=== PATIENT | female | born 1990 | race Caucasian/White ===

== ENCOUNTER 2016-10-07 04:41 | Inpatient (IN) | payer BC, OTHER, MEDICAID ==
[2016-10-07] MEDS ORDERED: LIDOCAINE HCL 50 ML VIAL PERI PRN (05:40)
[2016-10-07] MEDS ORDERED: RINGERS SOLUTION,LACTATED 1,000 ML IV ONE (05:40)
[2016-10-07] MEDS ORDERED: OXYTOCIN/DEXTROSE 5%-WATER 30 UNITS/500 ML BAG IV ONE ×2 (05:40→12:33)
[2016-10-07] MEDS ORDERED: ONDANSETRON HCL/PF 2 MG/ML VIAL IV PRN (06:18)
[2016-10-07] MEDS ORDERED: BUPIVACAINE HCL/0.9 % NACL/PF 250 ML EP PRN (06:18)
[2016-10-07] MEDS ORDERED: NALOXONE HCL 1 MG/1 ML SYRG IV PRN (06:18)
[2016-10-07] MEDS ORDERED: fentaNYL CITRATE/PF 50 MCG/ML AMPUL IT SCH (06:30)
[2016-10-07] MEDS: DEXTROSE 5%-LACTATED RINGERS 1,000 ML IV PRN ×2 (06:45→10:52)
--- NOTE | 2016-10-07 06:53 | OR ---
Anesthesia Procedure Note - Anesthesia Procedure Note Narrative: Vital Signs - Last Taken Temp 36.4 C L 02/03/14 18:31 Pulse Resp BP 110/76 02/03/14 18:31 Pulse Ox 10/07/16 06:52 ANESTHESIA PROCEDURE NOTE Date of Procedure: 10/07/2016 Time of procedure: 02 28. Performed by: Андрей Limon CRNA Surface Room Shop Optician: None. Preprocedure diagnosis: Active labor. Post procedure diagnosis: Same. Procedure: Insertion of labor epidural. Indications: The patient is a 26 -year-old prima para female in active labor requesting labor epidural for pain management. Findings: See below. Details of the procedure: The patient was placed in a sitting position. Back was prepped with DuraPrep. Patient was then draped in a sterile fashion. Lidocaine 1% was infiltrated to the skin and subcutaneous tissues at the level of the L3 4 interspace. The epidural space was identified using a 18-gauge Tuohy needle with upxm-cu-xibeocncqa technique. 20 mcg fentanyl was given intrathecally using a 27 ga. spinal needle. Epidural catheter was inserted without difficulty. Negative test dose was elicited using 5 mL of 1.5% preservative-free lidocaine plus epinephrine 1 200,000. The epidural catheter was then taped and secured in place. EBL: Minimal. Fluids: N/A. Specimen: N/A. Post procedure condition: The patient tolerated the procedure well. No complications were noted. Thank you for this consultation. Campbell CRNA
[2016-10-07 07:14] LABS: Urine Bilirubin Negative (NEGATIVE); Urine Blood 250 /ul (NEGATIVE); Urine Ketone Negative (NEGATIVE); Urine Nitrite Negative (NEGATIVE); Urine Protein 15 mg/dL (NEGATIVE); Urine Specific Gravity 1.015 SP.GR. (1.005-1.010); Urine Urobilinogen Normal (NORMAL)
[2016-10-07 07:25] LABS: Urine Appearance Cloudy; Urine Bacteria 2+; Urine Color Yellow
--- NOTE | 2016-10-07 07:29 | PN ---
Progess Note - Interim Narrative: 10/07/16 07:27 Patient comfortable with epidural Vital signs stable. FHT: 130 baseline, reassuring Contractions q 2-3 min Cervix: 7-8/90/-2 Impression: Intrauterine at 40 1/7 weeks in labor with spontaneous rupture of membranes at 0410 this a.m.-clear Plan: Anticipate normal spontaneous vaginal delivery in the next 2-3 hours
--- NOTE | 2016-10-07 08:40 | PN ---
Progess Note - Interim Narrative: 10/07/16 08:39 Patient comfortable with epidural Vital signs stable. FHT:150 baseline, reassuring Contractions q 2-3 min Cervix: Rim/0, Impression: Intrauterine at 40 1/7 weeks in labor Plan: Labor down
[2016-10-07] MEDS ORDERED: oxyCODONE HCL/ACETAMINOPHEN 1 TAB TABLET PO PRN (12:33)
[2016-10-07] MEDS ORDERED: BENZOCAINE/MENTHOL 81 SPRAY CAN TP PRN (12:33)
[2016-10-07] MEDS ORDERED: SENNOSIDES 8.6 MG TABLET PO PRN (12:33)
[2016-10-07] MEDS ORDERED: BISACODYL 10 MG SUPP.RECT RC PRN (12:33)
[2016-10-07] MEDS ORDERED: HYDROCORTISONE 30 APPL TUBE TP PRN (12:33)
[2016-10-07] MEDS ORDERED: GLYCERIN/WITCH HAZEL LEAF 40 APPL BOX TP PRN (12:33)
--- NOTE | 2016-10-07 12:41 | OR ---
Operative Report - Dictated Report Narrative: Indication: Maternal exhaustion Pre Procedure Patient was counseled to the risk, benefits, and alternatives to operative vaginal delivery. All questions were answered. Patient consented to proceed with operative vaginal delivery. heart rate interpretation: Reassuring, EFW 3700 g, station +3, Position of head AZUL, Anesthesia: epidural Cervix was completely dilated and effaced, maternal- size appropriate for application, bladder was emptied, flexion point identified, cup choice appropriate for application site, maternal tissue excluded from vacuum cup Procedure Total application time of the Kiwi Pro with Palm Pump was 3 minutes (only 1 minute with suction applied), maximum vacuum achieved was 500 mm Hg, number of pulls 1, number of involuntary releases 0, vacuum reduced between contractions, advancement in station with each pull, degree of rotation 0-45 Post Procedure Viable female born at 1205 on 10/07/2016 in AZUL position with Apgars 8 and 9, weighing 3793 g. Cord gases not collected, Placenta spontaneously delivered, EBL 100 mL, Nuchal cord x 1, foot cord 1, terminal meconium, small scalp caput, no shoulder dystocia. Cord clamping delayed 1 minute. History for MU Definition: * The number of deliveries resulting in a live the patient experienced prior to current hospitalization * The previous delivery of live twins or any live multiple gestation is considered one live event. *If primagravida or nulliparous is documented select zero for the number of previous live births. Live Events: 0
[2016-10-07] MEDS: DOCUSATE SODIUM 100 MG CAPSULE PO SCH ×2 (13:34→22:31)
[2016-10-07] MEDS: IBUPROFEN 800 MG TABLET PO PRN ×2 (14:52→22:31)
[2016-10-07] MEDS: oxyCODONE HCL/ACETAMINOPHEN 1 TAB TABLET PO PRN ×2 (14:52→22:31)
[2016-10-08] MEDS: IBUPROFEN 800 MG TABLET PO PRN ×3 (06:32→21:36)
[2016-10-08] MEDS: DOCUSATE SODIUM 100 MG CAPSULE PO SCH ×2 (09:05→21:36)
[2016-10-08] MEDS: PRENATAL VIT#96/FERROUS FUM/FA 1 TAB TABLET PO SCH (09:05)
[2016-10-08] MEDS: FERROUS SULFATE 325 MG TABLET PO SCH (09:05)
[2016-10-08] MEDS: oxyCODONE HCL/ACETAMINOPHEN 1 TAB TABLET PO PRN ×2 (10:32→21:35)
--- NOTE | 2016-10-08 15:20 | PN ---
Subjective - Date and Time Seen Date: 10/08/16 Time: 15:19 Objective - Vitals Vitals: Last Vital Signs Temp 36.7 C 10/08/16 12:40 Pulse 95 10/08/16 12:40 Resp 17 10/08/16 12:40 BP 135/68 10/08/16 12:40 Pulse Ox 96 10/08/16 12:40 Patient denies complaints. Lochia wnl Abdomen - soft, nontender Uterus - firm, at umbilicus - 1 No calf tenderness Impression: day #1 - s/p vacuum-assisted vaginal delivery. Plan: Continue routine care
[2016-10-09] MEDS: IBUPROFEN 800 MG TABLET PO PRN ×2 (06:36→13:42)
[2016-10-09] MEDS: DOCUSATE SODIUM 100 MG CAPSULE PO SCH (08:36)
[2016-10-09] MEDS: FERROUS SULFATE 325 MG TABLET PO SCH (08:36)
[2016-10-09 08:57] VITALS: BP 127/86
[2016-10-09] MEDS: PRENATAL VIT#96/FERROUS FUM/FA 1 TAB TABLET PO SCH (13:42)
--- NOTE | 2016-10-09 16:31 | PN ---
Subjective - Date and Time Seen Date: 10/09/16 Time: 16:31 Objective - Vitals Vitals: Last Vital Signs Temp 36.9 C 10/09/16 08:30 Pulse 92 10/09/16 08:30 Resp 20 10/09/16 08:30 BP 127/86 10/09/16 08:30 Pulse Ox 99 10/09/16 08:30 Patient denies complaints. States feeding well Lochia wnl Abdomen - soft, nontender Uterus - firm, at umbilicus - 2 No calf tenderness Impression: day #2 - s/p spontaneous vaginal delivery. Plan: Routine discharge instructions. Will with Dr. Morrow in 4 weeks.
== END 2016-10-09 15:40 | disposition home or self-care (01) | DRG 775 ==
LOC: OBCLINIC 04:41 → OB 05:28
PROVIDERS: ADMIT Obstetrics & Gynecology; ATTEND Obstetrics & Gynecology
PROC: 10D07Z6 Extraction of Products of Conception, Vacuum, Via Natural or Artificial Opening (ICD-10-PCS; principal; 2016-10-07)
PROC: 4A1HXCZ Monitoring of Products of Conception, Cardiac Rate, External Approach (ICD-10-PCS; 2016-10-07)
PROC: 3E0S3CZ (ICD-10-PCS; 2016-10-07)
DX: O75.81 Maternal exhaustion complicating labor and delivery (principal); O69.81X0 Labor and delivery complicated by cord around neck, without compression, not applicable or unspecified; O99.02 Anemia complicating childbirth; D64.9 Anemia, unspecified; O77.0 Labor and delivery complicated by meconium in amniotic fluid; Z3A.40 40 weeks gestation of pregnancy; Z37.0 Single live birth

== ENCOUNTER 2021-01-11 05:56 | Inpatient (IN) ==
[2021-01-11] MEDS ORDERED: DEXTROSE 5%-LACTATED RINGERS 1,000 ML IV PRN (06:06)
[2021-01-11] MEDS ORDERED: RINGER'S SOLUTION,LACTATED 1,000 ML IV ONE (06:06)
[2021-01-11] MEDS ORDERED: OXYTOCIN/0.9 % SODIUM CHLORIDE 30 UNITS/500 ML BAG IV ONE ×2 (06:06→17:13)
[2021-01-11] MEDS ORDERED: ONDANSETRON 4 MG TAB.RAPDIS PO PRN (06:06)
[2021-01-11] MEDS ORDERED: NALOXONE HCL 1 MG/1 ML SYRG IV PRN (06:51)
[2021-01-11] MEDS ORDERED: ONDANSETRON HCL/PF 2 MG/ML VIAL IV PRN (06:51)
[2021-01-11] MEDS ORDERED: BUPIVACAINE HCL/0.9 % NACL/PF 250 ML EP PRN (06:51)
--- NOTE | 2021-01-11 06:56 | ANES ---
Anesthesia Pre Procedure Eval Vitals/Labs: Last Vital Signs Temp 36.9 C 01/11/21 06:18 Pulse 94 01/11/21 06:18 Resp 18 01/11/21 06:18 BP 116/75 01/11/21 06:18 Pulse Ox 100 01/11/21 06:18 HOME MEDICATIONS prenat.vits,denys,zno-bpsr-tpthu 1 tab PO DAILY 05/24/20 [Last Taken Unknown] Allergies/Adverse Reactions: Allergies Allergy/AdvReac Type Severity Reaction Status Date / Time nickel Allergy itchy, Verified 01/09/21 09:11 rash - Planned Procedure Planned Procedure: elective induction 39 wks 5 days Medication List Reviewed:: Yes Allergies Verified: Yes Medical History (Last Reviewed 01/11/21 @ 06:55 by Dariusz Galvan CRNA) Pelvic pain in female Bacterial vaginitis (Resolved) Chlamydia trachomatis infection Onset Date: ~2006 Vaginal delivery Onset Date: 03/26/16 Refused H1N1 influenza virus immunization Onset Date: 06/19/18 Surgical History (Last Reviewed 01/11/21 @ 06:55 by Dariusz Galvan CRNA) H/O local excision of skin lesion Onset Date: 07/09/12 Lipoma- Dr. Morrow Hx of tonsillectomy Onset Date: ~2013 Family History (Last Reviewed 01/11/21 @ 06:55 by Dariusz Galvan CRNA) Father Circulation problem Grandfather Malignant melanoma Grandmother CVA (cerebral vascular accident) Mother Ovarian cancer, Onset Age: 59 - Family Anesthesia History Family History:: no untoward family reactions to anesthesia, no familial bleeding tendencies, no family history of clotting disorders, no family history of premature - Airway/Neck/Teeth Within Normal Limits:: Yes Teeth Condition: intact Denture Type: Full upper Neck Exam: full range of motion Mallampatti Score: 2 Thyromental (T-M) distance: > 6 cm Mandibulo Hyoid distance: > 3 cm - Respiratory Smoking Status: Never smoker Sleep Apnea currently treated: No Sleep Apnea by current assessment: No - Cardiovascular Tolerate Activity: Good Heart Sounds: S1 & S2, Regular - Gastrointestinal NPO since: 2399 - Anesthesia Assessment and Plan ASA Class: PS, II, E Anesthesia Type Plan: Epidural - CSE for labor analgesia
[2021-01-11] MEDS ORDERED: fentaNYL CITRATE/PF 50 MCG/ML AMPUL IT SCH (07:00)
--- NOTE | 2021-01-11 07:15 | ANES ---
Post Anesthesia Discharge - Transfer of Care Transfer of Care handoff given to nurse: Yes - Discharge from PACU Discharge from PACU when meets criteria: Yes - Comfortable post CSE
--- NOTE | 2021-01-11 07:16 | ANES ---
Anesthesia Procedure Note Procedure Note: ANESTHESIA PROCEDURE NOTE Date of Procedure: 01/11/2021 Time of procedure: 6:55 AM. Performed by: LOIS Mejia CRNA, MSN Rat Farmer: Florecita Winkler RN. Preprocedure diagnosis: Active labor, labor pain. Post procedure diagnosis: Same. Procedure:Epidural for labor analgesia L3-4. Indications: Labor pain. Findings: See below. Details of the procedure: The patient was placed on the side of the bed in sitting positionand prepped with DuraPrep then draped in a sterile fashion. Lidocaine 1% was infiltrated to the skin and subcutaneous tissues at the level of the L3-4 interspace. An 18-gauge Touhy needle was used to approach the epidural space with loss of resistance technique. Once loss of resistance was achieved a 27-gauge spinal needle was passed through the epidural needle and CSF was contacted. After CSF returned, 20 mcg of fentanyl was injected in the spinal needle was removed the epidural catheter was then threaded approximately 4 cm in the epidural needle was removed. The catheter was taped in place and after careful aspiration 3 mL of 1.5% lidocaine with 1-200,000 epinephrine was injected without change in maternal heart rate or sensorium. . EBL: Minimal. Fluids: N/A. Specimen: N/A. Post procedure condition: The patient tolerated the procedure well with good relief. No complications were noted. Thank you for this consultation. Dariusz Galvan CRNA, LOIS, MSN
--- NOTE | 2021-01-11 07:25 | ANES ---
Post Anesthesia Assessment - Vital Signs Vitals: Last Vital Signs Temp 36.9 C 01/11/21 06:18 Pulse 94 01/11/21 06:18 Resp 18 01/11/21 06:18 BP 116/75 01/11/21 06:18 Pulse Ox 100 01/11/21 06:18 Airway Patency: Normal - Mental Status Level Of Consciousness: Awake, Alert, Appropriate - Pain Level Pain Score: 0 - N/V Assessment Nausea/Vomiting Presence: None Dehydration:: No
--- NOTE | 2021-01-11 08:45 | HP ---
Chief Complaint - Chief Complaint Date of Service: 01/11/21 Time of Service: 08:27 Chief Complaint: Elective induction of labor History of Present Illness: 30-year-old 2 para 1 admitted at 39 5/7 weeks for elective induction of labor. This complicated by a fall at approximately 38 weeks gestation and former smoker. Rh+ Rubella nonimmune GBS negative Medical History (Last Reviewed 01/11/21 @ 08:28 by Delroy Sebastian DO) Pelvic pain in female Bacterial vaginitis (Resolved) Chlamydia trachomatis infection Onset Date: ~2006 Vaginal delivery Onset Date: 03/26/16 Refused H1N1 influenza virus immunization Onset Date: 06/19/18 Surgical History: Surgical History (Last Reviewed 01/11/21 @ 08:28 by Delroy Sebastian DO) H/O local excision of skin lesion Onset Date: 07/09/12 Lipoma- Dr. Morrow Hx of tonsillectomy Onset Date: ~2013 Family History: Family History (Last Reviewed 01/11/21 @ 08:28 by Delroy Sebastian DO) Father Circulation problem Grandfather Malignant melanoma Grandmother CVA (cerebral vascular accident) Mother Ovarian cancer, Onset Age: 59 Social History: (Last Reviewed 01/11/21 @ 08:28 by Delroy Sebastian DO) Social History: adopted: No senior living: No Marital status: Single household members: children number of children: 1 current occupational status: employed current occupation: [employer] Highest level of school completed/degree received: Bachelor's degree Sexually Active: Yes Service: No Tobacco: Smoking Status: Never smoker second hand exposure: No Alcohol: alcohol intake: current alcohol intake frequency: holiday/special occasion details: none since + UPT Substance Use: substance use type: does not use Dietary Habits: caffeine: Yes caffeine comment: 1/day Type: carbonated beverages daily servings of milk/calcium: 0-1 Exercise: Physical activity type: walking frequency: does not exercise Review Of Systems (GEN) - Review of Systems Generalized/Overall Review: Present: No Symptoms Reported EENTM: Present: No Symptoms Reported Respiratory: Present: No Symptoms Reported Cardiac: Present: No Symptoms Reported Abdominal: Present: Other - Occasional mild contractions Genitourinary: Present: No Symptoms Reported Musculoskeletal: Present: No Symptoms Reported Neurological: Present: No Symptoms Reported Skin: Present: No Symptoms Reported Endocrine: Present: No Symptoms Reported Allergies/Adverse Reactions: Allergies Allergy/AdvReac Type Severity Reaction Status Date / Time nickel Allergy itchy, Verified 01/09/21 09:11 rash Home Medications: HOME MEDICATIONS prenat.vits,denys,uqa-olet-hyzja 1 tab PO DAILY 05/24/20 [Last Taken Unknown] Exam - Exam Vital Signs: Vital Signs - Last Taken Temp 36.9 C 01/11/21 06:18 Pulse 94 01/11/21 06:18 Resp 18 01/11/21 06:18 BP 116/75 01/11/21 06:18 Pulse Ox 100 01/11/21 06:18 Constitutional: Present: Alert, Oriented x3, Cooperative ENT Exam: Present: hearing grossly normal Neck: Present: non-tender, trachea midline. Absent: thyromegaly Breasts: Present: Exam deferred Respiratory: Present: lungs clear, no respiratory distress Cardiovascular/Chest: Present: normal peripheral pulses, regular rate, rhythm Abdomen: Present: soft, nontender, no rebound tenderness /Rectal: Present: Other - Cervix - 4-5/50/-2 Extremity: Present: no pedal edema, no calf tenderness Skin Exam: Present: normal color, warm/dry, no cyanosis Lymphatic: Present: no adenopathy Neurologic: Present: alert, normal mood/affect, oriented x 3 Appearance: Present: appropriate appearance, appropriate insight Eye contact: Present: cooperative, good eye contact Thoughts: Present: normal thought pattern, normal mood /affect Assessment/Plan - Assessment/Plan (1) Elective induction of labor planned Assessment: Admit for Pitocin induction of labor. Epidural as needed. We will give rubella vaccine at visit. Problem: Acute (2) Rubella non-immune status, antepartum Problem: Chronic
--- NOTE | 2021-01-11 08:46 | PN ---
Progess Note - Interim Date: 01/11/21 Time: 08:00 Narrative: 01/11/21 08:46 Patient comfortable with epidural Vital signs stable. Pitocin at 4 mu/min. FHT: 120 baseline, reassuring contractions q 2-3 min Cervix: 5/50/-2, AROM-clear Impression: Intrauterine at 39-5/7 weeks elective induction of labor. Plan: Continue present plan
--- NOTE | 2021-01-11 12:46 | PN ---
Progess Note - Interim Date: 01/11/21 Time: 12:42 Narrative: 01/11/21 12:42 Patient comfortable with epidural Vital signs stable. Pitocin at 6 mu/min. FHT: 120 baseline, reassuring contractions q 2-3 min Cervix: 7/80/-2 Impression: Intrauterine at 39-5/7 weeks induction of labor Plan: Continue present plan
--- NOTE | 2021-01-11 17:10 | OR ---
Operative Report - Dictated Report Narrative: Spontaneous vaginal delivery of viable male at 1650 on 01/11/2021 with Apgars 9 and 10 weighing 3628 g in KAY position with tight nuchal cord x1. Patient began vigorously crying 23 seconds after . Cord clamping delayed approximately 1 minute Placenta delivered complete, intact, with three vessel cord Estimated blood loss: 100 mL Anesthesia: Epidural Lacerations: None History for MU History for Definition: * The number of deliveries resulting in a live the patient experienced prior to current hospitalization * The previous delivery of live twins or any live multiple gestation is considered one live event. *If primagravida or nulliparous is documented select zero for the number of previous live births. Live Events: Live Events: 1
[2021-01-11] MEDS ORDERED: GLYCERIN/WITCH HAZEL LEAF 40 APPL BOX TP PRN (17:13)
[2021-01-11] MEDS ORDERED: BISACODYL 10 MG SUPP.RECT RC PRN (17:13)
[2021-01-11] MEDS ORDERED: IBUPROFEN 800 MG TABLET PO PRN (17:13)
[2021-01-11] MEDS ORDERED: BENZOCAINE/MENTHOL 81 SPRAY CAN TP PRN (17:13)
[2021-01-11] MEDS ORDERED: oxyCODONE HCL/ACETAMINOPHEN 1 TAB TABLET PO PRN (17:13)
[2021-01-11] MEDS ORDERED: SENNOSIDES 8.6 MG TABLET PO PRN (17:13)
[2021-01-11] MEDS ORDERED: HYDROCORTISONE 30 APPL TUBE TP PRN (17:13)
[2021-01-11] MEDS: IBUPROFEN 800 MG TABLET PO PRN (19:08)
[2021-01-11] MEDS: DOCUSATE SODIUM 100 MG CAPSULE PO SCH (21:17)
[2021-01-12] MEDS: IBUPROFEN 800 MG TABLET PO PRN (04:50)
[2021-01-12] MEDS: DOCUSATE SODIUM 100 MG CAPSULE PO SCH ×2 (08:42→21:17)
[2021-01-12] MEDS ORDERED: PRENATAL VITS96/IRON FUM/FOLIC 1 TAB TABLET PO SCH (09:00)
--- NOTE | 2021-01-12 12:44 | PN ---
Subjective - Date and Time Seen Date: 01/12/21 Time: 12:43 Objective - Vitals Vitals: Last Vital Signs Temp 36.8 C 01/12/21 11:34 Pulse 81 01/12/21 11:34 Resp 18 01/12/21 11:34 BP 108/62 01/12/21 11:34 Pulse Ox 100 01/12/21 11:34 Patient denies complaints. Bottlefeeding. Lochia wnl abdomen - soft, nontender Uterus -firm, at umbilicus - 1 No calf tenderness Impression: day #1 - s/p spontaneous vaginal delivery. Plan: Continue routine care Cauti Physician Documentation - Urinary Catheter Management Urethral (Patel) Date of Insertion: 01/11/21 Time of Insertion: 07:30 Assessment/Plan - Problems/Diagnosis (1) Elective induction of labor planned Problem: Acute (2) Rubella non-immune status, antepartum Problem: Chronic
[2021-01-13 07:16] VITALS: BP 109/59
--- NOTE | 2021-01-13 10:01 | PN ---
Subjective - Date and Time Seen Date: 01/13/21 Time: 10:00 Objective - Vitals Vitals: Last Vital Signs Temp 37 C 01/13/21 06:30 Pulse 57 L 01/13/21 06:30 Resp 18 01/13/21 06:30 BP 109/59 01/13/21 06:30 Pulse Ox 99 01/13/21 06:30 Patient denies complaints. Bottlefeeding. Lochia wnl abdomen - soft, nontender Uterus -firm, at umbilicus - 2 No calf tenderness Impression: day #2 - s/p spontaneous vaginal delivery. Plan: Routine discharge instructions Cauti Physician Documentation - Urinary Catheter Management Urethral (Patel) Date of Insertion: 01/11/21 Time of Insertion: 07:30 Assessment/Plan - Problems/Diagnosis (1) Normal vaginal delivery of second Problem: Acute (2) Elective induction of labor planned Problem: Resolved (3) Rubella non-immune status, antepartum Problem: Chronic
--- NOTE | 2021-01-13 10:03 | DS ---
OB Discharge Summary (1) Normal vaginal delivery of second Status: Acute (2) Elective induction of labor planned Status: Resolved (3) Rubella non-immune status, antepartum Status: Chronic Delivery Date: 01/11/21 Delivery Time: 16:50 :: 2 Para:: 2 Gestational weeks:: 39 Gestational days:: 5 Intrapartum Procedures: Spontaneous Vaginal Delivery, Delivered, Anesthesia - Epidural /OP Complications: No Complications Discharge Diagnosis: Term -Delivered, Rubella Nonimmune - Discharge Information Date of Discharge: 01/13/21 Hospital Course: 30-year-old 2 now para 2 admitted at 39-5/7 weeks for elective induction of labor. Labor, delivery, and course were uncomplicated. Patient was discharged to home with routine discharge instructions and follow-up. Discharge Location: Home Disposition: Home self-care Condition: Good Activity on Discharge:: Activity as tolerated, Pelvic Rest Discharge Diet: General/regular food Additional Patient Instructions (free text): Adry will have a follow up appointment with Dr. Sebastian on January at 2:15 pm. Continue to take your vitamins one daily. Rest when your baby rests. will follow up with Andrés Ferro on January 15, 2021 at 10:15. Always use safe sleeping practices, always place your baby on his back, in his own bed. No co-sleeping, bumper pad, heavy blankets, pillows or stuffed animals. Feed every 3-4 hours burping frequently. Birthweight 7# 15.9oz Today's weight He has passed his hearing in both ears. Thank you for choosing [facility] your [facility]. If you have any concerns or questions please call the [facility] [phone]. [facility] [phone] or [facility] [phone]. Prescriptions (Any new or edited meds): Ibuprofen [Motrin] 200 - 800 mg PO Q6H PRN #100 tab PRN Reason: Pain Complete Home Medications List: Complete Home Medication List: prenat.vits,denys,pcy-neia-vpnfr 1 tab PO DAILY 05/24/20 Ibuprofen [Motrin] 200 - 800 mg PO Q6H PRN #100 tab 01/12/21 - Plan Discharge to:: Home Follow up in office in:: 3-4 weeks - [place] Information Weight (Grams): 3,628 Infant Sex: Male Score 1 min: 9 Score 5 min: 10 Infant Complications: None
== END 2021-01-13 11:10 | disposition home or self-care (01) | DRG 807 ==
LOC: OB 05:56
PROVIDERS: ADMIT Obstetrics & Gynecology; ATTEND Obstetrics & Gynecology